=== PATIENT | female | born 2000 | race Two or more races ===

== ENCOUNTER 2023-07-08 18:52 | Emergency (ER) | payer OTHER ==
[~2023-07-08] VITALS: Ht 157.5 cm; Wt 48.0 kg
[2023-07-08 20:51] VITALS: BP 133/81; PULSE 72; RESP 16; TEMP 99.1; O2SAT 100
[2023-07-08] MEDS ORDERED: ERY05OO OP (21:04)
== END 2023-07-08 21:05 | disposition home or self-care (01) ==
LOC: ER 18:52
DX: H57.12 Ocular pain, left eye (principal)